=== PATIENT | female | born 1985 | race African-American/Black ===

== ENCOUNTER 2016-12-06 08:22 | Emergency (ER) | payer OTHER ==
[~2016-12-06] VITALS: Ht 170.2 cm; Wt 92.0 kg
[~2016-12-06 08:22] MED LIST: AMOX875T PO; DIFL150T PO; NITR0.4S SL; PERM5CRE TOPICAL; ZOFR4TAB PO
[2016-12-06 08:24] VITALS: BP 126/76; PULSE 100; RESP 20; TEMP 98; O2SAT 97
--- NOTE | 2016-12-06 09:36 | PD ---
HPI Chief Complaint: Abdominal Pain Time Seen by Provider: 09:36 Travel History International Travel<30 days: No Contact w/Intl Traveler<30days: No Traveled to known affect area: No History of Present Illness HPI 31-year-old Afro-[place] female presents the emergency Department with lower abdominal suprapubic discomfort and vaginal discharge. Patient states she recently moved here from [place] and does not have a local PCP or [employer]. Patient denies recent change in sexual partners. She states her fianc actually 2 months ago. Patient had a fever yesterday of 101. She denies urinary symptoms or diarrhea. Patient has an IUD for 3 years. She denies any other symptoms. She has no known drug allergies. PFSH Past Medical History Cardiovascular Problems: Yes (ANGINA) Chest Pain: Yes Diminished Hearing: No Tetanus Vaccination: < 5 Years Influenza Vaccination: No ?: Not LMP: IRREGULAR Past Surgical History Section: Yes (X2) Social History Alcohol Use: Yes (OCC) Tobacco Use: Yes Substance Use: No Allergies-Medications (Allergen,Severity, Reaction): Coded Allergies: No Known Allergies (Unverified , 12/06/16) Reported Meds & Prescriptions Reported Meds & Active Scripts Active Metronidazole 500 Mg Tab 500 Mg PO TID Diflucan (Fluconazole) 150 Mg Tab 150 Mg PO ONCE Keflex (Cephalexin) 500 Mg Cap 500 Mg PO Q8H Diflucan (Fluconazole) 150 Mg Tab 150 Mg PO ONCE Zofran (Ondansetron HCl) 4 Mg Tab 4 Mg PO Q8HR PRN 3 Days Permethrin Topical (Permethrin) 5% Cream 1 Applic TOPICAL ONCE Amoxicillin 875 Mg Tab 875 Mg PO BID 10 Days Reported Nitrostat SL (Nitroglycerin) 0.4 Mg Subl 0.4 Mg SL DIRECTED PRN ONE TABLET UNDER THE TONGUE NEEDED FOR CHEST PAIN, MAY REPEAT EVERY FIVE MINUTES FOR A TOTAL OF 3 DOSES OR CALL 911 IF NO RELIEF Review of Systems Except as stated in HPI: all other systems reviewed are Neg General / Constitutional: Positive: Fever, Chills Eyes: No: Visual changes HENT: No: Headaches Cardiovascular: No: Chest Pain or Discomfort Respiratory: No: Shortness of Breath Gastrointestinal: No: Abdominal Pain Genitourinary: Positive: Pelvic Pain, Discharge, No: Dysuria, Vaginal Bleeding Musculoskeletal: No: Pain Skin: No Rash Neurologic: No: Weakness Psychiatric: No: Depression Endocrine: No: Polydipsia Hematologic/Lymphatic: No: Easy Bruising Physical Exam Narrative GENERAL: Patient appears no distress. SKIN: Warm and dry. Normal color. Normal turgor. HEAD: Atraumatic. Normocephalic. EYES: Pupils equal and round. No scleral icterus. No injection or drainage. ENT: No nasal bleeding or discharge. Mucous membranes pink and moist. Pharynx is normal. NECK: Trachea midline. Supple and nontender. CARDIOVASCULAR: Regular rate and rhythm. RESPIRATORY: No accessory muscle use. Clear to auscultation. Breath sounds equal bilaterally. GASTROINTESTINAL: Abdomen soft, moderate suprapubic tenderness, nondistended. No CVA tenderness. Hepatic and splenic margins not palpable. PELVIC: Pelvic exam performed with nursing assistance. Patient had moderate discharge with mild discomfort with cervical motion, but no bleeding. GC chlamydia and wet prep are obtained and sent to the lab. No rashes appreciated. MUSCULOSKELETAL: Extremities without clubbing, cyanosis, or edema. No obvious deformities. NEUROLOGICAL: Awake and alert. No obvious cranial nerve deficits. Motor grossly within normal limits. Five out of 5 muscle strength in the arms and legs. Normal speech. PSYCHIATRIC: Appropriate mood and affect; insight and judgment normal. Data Data Last Documented VS Vital Signs Date Time Temp Pulse Resp B/P Pulse Ox O2 Delivery O2 Flow Rate FiO2 12/06/16 08:24 98.0 100 20 126/76 97 Room Air Orders Complete Blood Count With Diff (12/06/16 09:39) Comprehensive Metabolic Panel (12/06/16 09:39) Gc And Chlamydia Pcr (12/06/16 09:39) Wet Prep Profile (12/06/16 09:39) Urinalysis - C+S If Indicated (12/06/16 09:39) Iv Access Insert/Monitor (12/06/16 09:39) Sodium Chloride 0.9% Flush (Ns Flush) (12/06/16 09:45) Urine Culture (12/06/16 10:15) Metronidazole (Flagyl) (12/06/16 11:15) Ceftriaxone Inj (Rocephin Inj) (12/06/16 11:15) Azithromycin Powd Pack (Zithromax Powd P (12/06/16 11:15) Labs Laboratory Tests Test 2/3/17 10:15 White Blood Count 8.3 TH/MM3 Red Blood Count 4.44 MIL/MM3 Hemoglobin 13.9 GM/DL Hematocrit 40.2 % Mean Corpuscular Volume 90.6 FL Mean Corpuscular Hemoglobin 31.2 PG Mean Corpuscular Hemoglobin 34.5 % Concent Red Cell Distribution Width 13.8 % Platelet Count 409 TH/MM3 Mean Platelet Volume 7.2 FL Neutrophils (%) (Auto) 56.6 % Lymphocytes (%) (Auto) 29.9 % Monocytes (%) (Auto) 6.1 % Eosinophils (%) (Auto) 6.4 % Basophils (%) (Auto) 1.0 % Neutrophils # (Auto) 4.7 TH/MM3 Lymphocytes # (Auto) 2.5 TH/MM3 Monocytes # (Auto) 0.5 TH/MM3 Eosinophils # (Auto) 0.5 TH/MM3 Basophils # (Auto) 0.1 TH/MM3 CBC Comment DIFF FINAL Differential Comment Urine Color YELLOW Urine Turbidity CLOUDY Urine pH 5.5 Urine Specific [place] 1.030 Urine Protein 30 mg/dL Urine Glucose (UA) NEG mg/dL Urine Ketones NEG mg/dL Urine Occult Blood TRACE Urine Nitrite NEG Urine Bilirubin NEG Urine Urobilinogen LESS THAN 2.0 MG/DL Urine Leukocyte Esterase LARGE Urine RBC 12 /hpf Urine WBC 24 /hpf Urine Squamous Epithelial 69 /hpf Cells Urine Transitional Epithelial <1 /hpf Cells Urine Bacteria MOD /hpf Urine Mucus MOD /lpf Urine Trichomonas RARE Microscopic Urinalysis Comment CULTURE INDICATED Clue Cells (Wet Prep) PRESENT Vaginal Trichomonas (Wet Prep) PRESENT Vaginal Yeast (Wet Prep) PRESENT Sodium Level 138 MEQ/L Potassium Level 4.0 MEQ/L Chloride Level 103 MEQ/L Carbon Dioxide Level 27.5 MEQ/L Anion Gap 8 MEQ/L Blood Urea Nitrogen 8 MG/DL Creatinine 0.78 MG/DL Estimat Glomerular Filtration 104 ML/MIN Rate Random Glucose 102 MG/DL Calcium Level 8.7 MG/DL Total Bilirubin 0.9 MG/DL Aspartate Amino Transf 24 U/L (AST/SGOT) Alanine Aminotransferase 49 U/L (ALT/SGPT) Alkaline Phosphatase 51 U/L Total Protein 7.9 GM/DL Albumin 4.0 GM/DL [facility] Medical Decision Making Medical Screen Exam Complete: Yes Emergency Medical Condition: Yes Differential Diagnosis Urinary tract infection. PID. GC or chlamydia. Trichomonas. Vaginosis. Vaginal candidiasis. Narrative Course Patient is medically stable at time of exam. Labs ordered including CBC, CMP, urinalysis, GC chlamydia, wet prep. IV access is obtained. CBC is unremarkable. CMP is unremarkable. Urinalysis suggests urinary tract infection and culture is pending. Wet prep shows clue cells, Trichomonas, and hyphae. Patient is treated with 1000 mg Rocephin IV. Patient given a first dose of Flagyl 500 mg by mouth as well as azithromycin 1 g by mouth. Patient be discharged home on Keflex 500 mg 3 times a day 7 days. Patient is to take metronidazole 500 mg 3 times a day 7 days. Patient is to take Diflucan 150 mg now and repeat in one week. Patient is [facility]2 weeks to ensure resolution of symptoms. Patient can return to emergency department worsening symptoms develop. Diagnosis Primary Impression: Trichomonal infection Additional Impressions: Candidiasis of genitalia in female Urinary tract infection Qualified Code: N30.00 - Acute cystitis without hematuria Referrals: [facility] Patient Instructions: Bacterial Vaginosis (ED), General Instructions, Trichomoniasis (ED), Vulvovaginal Candidiasis (ED) Additional Instructions: CBC is unremarkable. CMP is unremarkable. Urinalysis suggests urinary tract infection and culture is pending. Wet prep shows clue cells, Trichomonas, and hyphae. Patient is treated with 1000 mg Rocephin IV. Patient given a first dose of Flagyl 500 mg by mouth as well as azithromycin 1 g by mouth. Patient be discharged home on Keflex 500 mg 3 times a day 7 days. Patient is to take metronidazole 500 mg 3 times a day 7 days. Patient is to take Diflucan 150 mg now and repeat in one week. Patient is to follow-up with the [facility] in 1-2 weeks to ensure resolution of symptoms. Patient can return to emergency department worsening symptoms develop. Med/Other Pt SpecificInfo: Prescription(s) given Scripts Metronidazole 500 Mg [id number] Mg PO TID #21 TAB Ref 0 Prov:Agustin Wagner MD 12/06/16 Fluconazole (Diflucan)150 Mg [id number] Mg PO ONCE #1 TAB Ref 1 Prov:Agustin Wagner MD 12/06/16 Cephalexin (Keflex)500 Mg [id number] Mg PO Q8H #21 CAP Prov:Agustin Wagner MD 12/06/16 Disposition: 01 DISCHARGE HOME Condition: Stable Elio Cash Dec 06, 2016 09:36 Elio Cash Dec 06, 2016 09:36
[2016-12-06] MEDS ORDERED: SODIUM CHLORIDE 0.9% FLUSH 5 ML FLUSH IVF PRN (09:45)
[2016-12-06 10:43] LABS: AUTOMATED NEUTROPHIL # 4.7 TH/MM3 (1.8-7.7); BASOPHIL # 0.1 TH/MM3 (0-0.2); EOSINOPHIL # 0.5 TH/MM3 (0-0.4); EOSINOPHIL % 6.4 % (0.0-4.0); HEMATOCRIT 40.2 % (35.0-46.0); HEMO FLAGS DIFF FINAL; LYMPH % 29.9 % (9.0-44.0); LYMPHOCYTE # 2.5 TH/MM3 (1.0-4.8); MEAN CELL VOLUME 90.6 FL (80.0-100.0); MEAN CORPUSCULAR HEMOGLOBIN 31.2 PG (27.0-34.0); MEAN CORPUSCULAR HGB CONC 34.5 % (32.0-36.0); MONO % 6.1 % (0.0-8.0); NEUT % 56.6 % (16.0-70.0); PLATELET COUNT 409 TH/MM3 (150-450); RED BLOOD COUNT 4.44 MIL/MM3 (4.00-5.30); RED CELL DISTRIBUTION WIDTH 13.8 % (11.6-17.2); WHITE BLOOD COUNT 8.3 TH/MM3 (4.0-11.0)
[2016-12-06 10:53] LABS: BACTERIA, URINE MOD /hpf; BLOOD, URINE TRACE (NEG); GLUCOSE,URINE NEG (NEG); KETONE, URINE NEG (NEG); MUCUS URINE MOD /lpf (OCC); NITRITE,URINE NEG (NEG); PH, URINE 5.5 (5.0-8.5); SQUAMOUS EPITHELIAL CELL URINE 69 /hpf (0-5); TRANSITIONAL EPI CELLS, URINE <1 /hpf; URINE COLOR YELLOW (YELLW/STRAW)
[2016-12-06 10:58] LABS: COMMENT (UR) CULTURE INDICATED; CULTURE IF INDICATED CULTURE INDICATED
[2016-12-06 11:04] LABS: ALKALINE PHOSPHATASE 51 U/L (45-117); ALT (GPT) 49 U/L (10-53); ANION GAP 8 MEQ/L (5-15); AST (GOT) 24 U/L (15-37); BICARBONATE 27.5 MEQ/L (21.0-32.0); BLOOD UREA NITROGEN 8 MG/DL (7-18); CHLORIDE 103 MEQ/L (98-107); GLOMERULAR FILTRATION RATE 104 ML/MIN (>89); SODIUM (NA) 138 MEQ/L (136-145); TOTAL BILIRUBIN ADULT 0.9 MG/DL (0.2-1.0)
[2016-12-06] MEDS ORDERED: METR500T10 PO (11:12)
[2016-12-06] MEDS ORDERED: DIFL150T PO (11:12)
[2016-12-06] MEDS ORDERED: CEPH-460 PO (11:12)
[2016-12-06] MEDS ORDERED: AZITHROMYCIN PWD FOR SUSP 1 GM PACKET PO ONE (11:15)
[2016-12-06] MEDS ORDERED: cefTRIAXone INJ 1,000 MG in SODIUM CHLORIDE 0.9% INJ 100 ML IV ONE (11:15)
[2016-12-06] MEDS ORDERED: metroNIDAZOLE 500 MG TAB PO ONE (11:15)
[2016-12-06 12:40] VITALS: BP 129/71
[2016-12-06 13:02] LABS: CHLAMYDIA PCR NOT DETECTED (NOT DETECT); NEISSERIA PCR NOT DETECTED (NOT DETECT)
== END 2016-12-06 12:41 | disposition home or self-care (01) ==
LOC: NEPB 08:22
DX: A59.9 Trichomoniasis, unspecified (principal); B37.3 Candidiasis of vulva and vagina; N30.00 Acute cystitis without hematuria; R50.9 Fever, unspecified; Z72.0 Tobacco use; Z86.79 Personal history of other diseases of the circulatory system
CPT/HCPCS: 80053; 81001; 85025; 87086; 87210; 87491; 87591; 96374; 99284; J0696

== ENCOUNTER 2017-11-10 08:13 | Emergency (ER) | payer OTHER ==
[~2017-11-10] VITALS: Ht 170.2 cm; Wt 97.0 kg
[~2017-11-10 08:13] MED LIST changes: +CEPH-460 PO; +METR1TAB76 PO
[2017-11-10 08:15] VITALS: BP 126/78; PULSE 130; RESP 24; TEMP 102.3; O2SAT 95
--- NOTE | 2017-11-10 08:55 | PD ---
HPI Chief Complaint: Cold / Flu Symptoms Time Seen by Provider: 08:47 Travel History International Travel<30 days: No Contact w/Intl Traveler<30days: No Traveled to known affect area: No History of Present Illness HPI A 32 year old female presents to the emergency department for fever and chest pain. About 8 hours ago she began to have a fever and dry cough. She also complains of throat pain and body aches. She came to the ER with her 2 kids who are also being seen for flu-like symptoms. She started to have pain her her chest when she coughs that started about 6 hours ago. The pain is in the center of her chest and is described as a pressure, is an 8/10, does not radiate anywhere. She has a hx of angina and took her last nitro which helped the pain. The pain is only there when she coughs and is not made worse with exertion. She has had vomiting but no diarrhea. She denies rash, shortness of breath, or abdominal pain. History Past Medical History Narrative Medical hx of angina LMP: iud Social History Alcohol Use: Yes (OCC) Tobacco Use: Yes Allergies-Medications (Allergen,Severity, Reaction): Coded Allergies: penicillin G (Verified Adverse Reaction, Severe, yeast infection, 11/10/17) Reported Meds & Prescriptions Reported Meds & Active Scripts Active Reported Nitrostat SL (Nitroglycerin) 0.4 Mg Subl 0.4 Mg SL DIRECTED PRN ONE TABLET UNDER THE TONGUE NEEDED FOR CHEST PAIN, MAY REPEAT EVERY FIVE MINUTES FOR A TOTAL OF 3 DOSES OR CALL 911 IF NO RELIEF Review of Systems General / Constitutional: Positive: Fever HENT: Positive: Sore Throat, Rhinorrhea Cardiovascular: Positive: Chest Pain or Discomfort, No: Palpitations, Irregular Rhythm, Tachycardia, Diaphoresis, Dyspnea on exertion, Edema Respiratory: Positive: Cough, No: Shortness of Breath, Wheezing, Sneezing Gastrointestinal: Positive: Vomiting, No: Nausea, Abdominal Pain Musculoskeletal: Positive: Myalgias Skin: No Rash Physical Exam Narrative GENERAL: A WDWN female in no acute respiratory distress SKIN: Warm and dry. HEAD: Atraumatic. Normocephalic. EYES: Pupils equal and round. No scleral icterus. No injection or drainage. ENT: No nasal bleeding or discharge. Mucous membranes pink and moist. Posterior pharynx is erythematous, no lymphadenopathy, no exudates NECK: Trachea midline. No JVD. CARDIOVASCULAR: Regular rate and rhythm. RESPIRATORY: No accessory muscle use. Clear to auscultation. Breath sounds equal bilaterally. GASTROINTESTINAL: Abdomen soft, non-tender, nondistended. Hepatic and splenic margins not palpable. MUSCULOSKELETAL: Extremities without clubbing, cyanosis, or edema. No obvious deformities. Reproducible pain over the sternum. NEUROLOGICAL: Awake and alert. No obvious cranial nerve deficits. Motor grossly within normal limits. Five out of 5 muscle strength in the arms and legs. Normal speech. PSYCHIATRIC: Appropriate mood and affect; insight and judgment normal. Data Data Last Documented VS Vital Signs Date Time Temp Pulse Resp B/P (MAP) Pulse Ox O2 Delivery O2 Flow Rate FiO2 11/10/17 09:06 98 Room Air 11/10/17 08:15 102.3 130 24 126/78 (94) Orders Orders Complete Blood Count With Diff (11/10/17 09:18) Ckmb (Isoenzyme) Profile (11/10/17 09:18) Troponin I (11/10/17 09:18) Group A Rapid Strep Screen (11/10/17 09:18) Influenzae A/B Antigen (11/10/17 09:18) Iv Access Insert/Monitor (11/10/17 09:18) Ecg Monitoring (11/10/17:18) Oximetry (11/10/17 09:18) Ibuprofen (Motrin) (11/10/17 09:30) Strep Culture (Group A) (11/10/17 09:25) CKMB (11/10/17 09:00) CKMB% (11/10/17 09:00) Labs Laboratory Tests Test 11/10/17 09:00 White Blood Count 13.1 TH/MM3 Red Blood Count 4.42 MIL/MM3 Hemoglobin 14.2 GM/DL Hematocrit 40.5 % Mean Corpuscular Volume 91.8 FL Mean Corpuscular Hemoglobin 32.2 PG Mean Corpuscular Hemoglobin Concent 35.1 % Red Cell Distribution Width 13.6 % Platelet Count 394 TH/MM3 Mean Platelet Volume 7.5 FL Neutrophils (%) (Auto) 89.6 % Lymphocytes (%) (Auto) 4.6 % Monocytes (%) (Auto) 4.3 % Eosinophils (%) (Auto) 0.9 % Basophils (%) (Auto) 0.6 % Neutrophils # (Auto) 11.7 TH/MM3 Lymphocytes # (Auto) 0.6 TH/MM3 Monocytes # (Auto) 0.6 TH/MM3 Eosinophils # (Auto) 0.1 TH/MM3 Basophils # (Auto) 0.1 TH/MM3 CBC Comment DIFF FINAL Differential Comment Total Creatine Kinase 154 U/L Creatine Kinase MB LESS THAN 0.5 NG/ML Troponin I LESS THAN 0.02 NG/ML MDM Medical Decision Making Medical Screen Exam Complete: Yes Emergency Medical Condition: Yes Differential Diagnosis Viral syndrome versus influenza versus strep a versus typical chest pain Narrative Course 32-year-old female with history of coronary artery disease, presents today with complaints of fever, cough, body aches. Patient also reports chest discomfort when she coughs. The patient's EKG and cardiac enzymes are within normal limits. The patient has no chest pain without coughing. She does have an elevated temperature. Her influenza and strep tests are negative as well. The patient's been given Motrin 800 mg times one dose. She is also being seen with her 2 kids with the same symptoms. She'll be discharged home and told to treat with Motrin and Tylenol for the fever. She is also instructed to drink plenty of fluids. She is instructed to follow up with her primary care physician and to return if she does any worsening symptoms. Diagnosis Primary Impression: Viral syndrome Additional Impression: Atypical chest pain Additional Instructions: Drink plenty of fluids. Motrin and Tylenol for fever. Return if feeling worse. Disposition: 01 DISCHARGE HOME Condition: Stable Isaias Vivar MD Nov 10, 2017 08:55
[2017-11-10] MEDS ORDERED: IBUPROFEN 800 MG TAB PO ONE (09:30)
[2017-11-10 09:42] LABS: AUTOMATED NEUTROPHIL # 11.7 TH/MM3 (1.8-7.7); BASOPHIL # 0.1 TH/MM3 (0-0.2); BASOPHIL % 0.6 % (0.0-2.0); EOSINOPHIL # 0.1 TH/MM3 (0-0.4); EOSINOPHIL % 0.9 % (0.0-4.0); HEMATOCRIT 40.5 % (35.0-46.0); HEMOGLOBIN 14.2 GM/DL (11.6-15.3); LYMPH % 4.6 % (9.0-44.0); LYMPHOCYTE # 0.6 TH/MM3 (1.0-4.8); MEAN CELL VOLUME 91.8 FL (80.0-100.0); MEAN CORPUSCULAR HEMOGLOBIN 32.2 PG (27.0-34.0); MEAN CORPUSCULAR HGB CONC 35.1 % (32.0-36.0); MEAN PLATELET VOLUME 7.5 FL (7.0-11.0); MONO % 4.3 % (0.0-8.0); MONOCYTE # 0.6 TH/MM3 (0-0.9); NEUT % 89.6 % (16.0-70.0); PLATELET COUNT 394 TH/MM3 (150-450); RED BLOOD COUNT 4.42 MIL/MM3 (4.00-5.30); RED CELL DISTRIBUTION WIDTH 13.6 % (11.6-17.2); WHITE BLOOD COUNT 13.1 TH/MM3 (4.0-11.0)
[2017-11-10 10:04] LABS: TROPONIN I LESS THAN 0.02 NG/ML (0.02-0.05)
[2017-11-10 12:00] VITALS: O2SAT 96
[2017-11-10] MEDS ORDERED: NITR0.4S SL (12:27)
--- NOTE | 2017-11-10 18:14 | EKG ---
Date Performed: 11/10/2017 Time Performed: 08:45:03 PTAGE: 32 years EKG: SINUS TACHYCARDIA SEPTAL MYOCARDIAL INFARCTION ABNORMAL ECG NO PREVIOUS TRACING DOCTOR: Rupa Wiggins Interpretating Date/Time 11/10/2017 18:13:14
== END 2017-11-10 12:40 | disposition home or self-care (01) ==
LOC: NEPC 08:13
DX: B34.9 Viral infection, unspecified (principal); R00.0 Tachycardia, unspecified; R94.31 Abnormal electrocardiogram [ECG] [EKG]; I25.10 Atherosclerotic heart disease of native coronary artery without angina pectoris; Z72.0 Tobacco use; Z88.0 Allergy status to penicillin
CPT/HCPCS: 82550; 82552; 84484; 85025; 87081; 87804; 87880; 93005; 99285